=== PATIENT | male | born 1955 | race Caucasian/White ===

== ENCOUNTER → 2023-07-17 17:01 | Outpatient (REF) | payer MEDICARE, OTHER, SELFPAY | LOC: RAD 17:01 | PROVIDERS: ATTENDING PHYSICIAN Internal Medicine | DX: H92.02 Otalgia, left ear (principal); R22.1 Localized swelling, mass and lump, neck | CPT/HCPCS: 76536 ==

== ENCOUNTER → 2023-08-21 07:18 | Outpatient (REF) | payer MEDICARE, OTHER, SELFPAY ==
[2023-08-21 09:49] LABS: Hematocrit 37.8 % (39.0-52.0); Mean Corp Hgb Conc. 34.4 g/dL (33.0-37.0); Mean Corpuscular Hgb 31.6 pg (27.0-31.0); Mean Corpuscular Volume 91.7 fL (80.0-94.0); Mean Platelet Volume 10.6 fL (7.4-10.4); Platelet Count 307 10^3/uL (130-400); Red Blood Cell Count 4.12 10^6/uL (4.70-6.10); Red Cell Dist. Width 13.1 % (11.5-14.5); White Blood Cell Count 7.3 10^3/uL (4.8-10.8)
[2023-08-21 10:31] VITALS: BMI 20.6
[2023-08-21 10:33] LABS: Blood Urea Nitrogen 15 mg/dl (9-20); Calcium 9.3 mg/dl (8.4-10.2); Carbon Dioxide 28 mmol/L (22-30); Chloride 104 mmol/L (98-107); Estimated Creatinine Clearance 72 ml/min; Glucose 96 mg/dl (70-99); Potassium 4.5 mmol/L (3.5-5.1); Sodium 139 mmol/L (135-145); eGFR > 60.00
== END ==
LOC: SDSPAT 07:18
PROVIDERS: ATTENDING PHYSICIAN Otolaryngology; FAMILY PHYSICIAN Internal Medicine
DX: Z01.818 Encounter for other preprocedural examination (principal)
CPT/HCPCS: 36415; 80048; 85027; 93005

== ENCOUNTER 2023-08-27 07:54 | Day surgery (SDC) | payer MEDICARE, OTHER, SELFPAY ==
[2023-08-21 13:29] VITALS: BMI 20.6
[2023-08-27] VITALS (11 sets, daily range): BP systolic 115–150; BP diastolic 62–78; BMI 20.6
[2023-08-27] MEDS: NORMOSOL-R 1000 IV (07:59)
[2023-08-27] MEDS: DILAUDID 0.25 MG IV (09:55)
== END 2023-08-27 11:13 | disposition home or self-care (01) ==
LOC: SDS 07:54
PROVIDERS: ATTENDING PHYSICIAN Otolaryngology; FAMILY PHYSICIAN Internal Medicine
DX: C32.1 Malignant neoplasm of supraglottis (principal); F17.210 Nicotine dependence, cigarettes, uncomplicated
CPT/HCPCS: 31535; 88305; 88342

== ENCOUNTER → 2023-09-06 11:38 | Outpatient (REF) | payer MEDICARE, OTHER, SELFPAY | LOC: RAD 11:38 | PROVIDERS: ATTENDING PHYSICIAN Radiology Radiation Oncology; FAMILY PHYSICIAN Internal Medicine | DX: C01 Malignant neoplasm of base of tongue (principal) | CPT/HCPCS: 70491; Q9967 ==

== ENCOUNTER 2024-04-02 13:55 | Outpatient (RCR) | payer MEDICARE, OTHER, SELFPAY | END 2024-04-02 23:59 | disposition home or self-care (01) | LOC: RPT 13:55 | PROVIDERS: ATTENDING PHYSICIAN Radiology Radiation Oncology; FAMILY PHYSICIAN Internal Medicine | DX: C01 Malignant neoplasm of base of tongue (principal); I89.0 Lymphedema, not elsewhere classified; Z73.6 Limitation of activities due to disability | CPT/HCPCS: 97110; 97112; 97140; 97163; 97530 ==

== ENCOUNTER 2024-04-30 13:52 | Outpatient (RCR) | payer MEDICARE, OTHER, SELFPAY | END 2024-04-30 23:59 | disposition home or self-care (01) | LOC: RPT 13:52 | PROVIDERS: ATTENDING PHYSICIAN Radiology Radiation Oncology; FAMILY PHYSICIAN Internal Medicine | DX: C01 Malignant neoplasm of base of tongue (principal); I89.0 Lymphedema, not elsewhere classified; Z73.6 Limitation of activities due to disability | CPT/HCPCS: 97110; 97112; 97140; 97530 ==

== ENCOUNTER 2024-05-28 13:43 | Outpatient (RCR) | payer MEDICARE, OTHER, SELFPAY | END 2024-05-28 23:59 | disposition home or self-care (01) | LOC: RPT 13:43 | PROVIDERS: ATTENDING PHYSICIAN Radiology Radiation Oncology; FAMILY PHYSICIAN Internal Medicine | DX: C01 Malignant neoplasm of base of tongue (principal); I89.0 Lymphedema, not elsewhere classified; Z73.6 Limitation of activities due to disability; R68.84 Jaw pain; R47.9 Unspecified speech disturbances | CPT/HCPCS: 97110; 97112; 97140 ==

== ENCOUNTER 2024-06-24 13:10 | Outpatient (RCR) | payer MEDICARE, OTHER, SELFPAY | END 2024-06-24 23:59 | disposition home or self-care (01) | LOC: RPT 13:10 | PROVIDERS: ATTENDING PHYSICIAN Radiology Radiation Oncology; FAMILY PHYSICIAN Internal Medicine | DX: C01 Malignant neoplasm of base of tongue (principal); I89.0 Lymphedema, not elsewhere classified; Z73.6 Limitation of activities due to disability; R68.84 Jaw pain; R47.9 Unspecified speech disturbances | CPT/HCPCS: 97110; 97112; 97140; 97530 ==

== ENCOUNTER 2024-07-08 12:53 | Outpatient (RCR) | payer MEDICARE, OTHER, SELFPAY | END 2024-07-09 06:23 | disposition home or self-care (01) | LOC: RPT 12:53 | PROVIDERS: ATTENDING PHYSICIAN Radiology Radiation Oncology; FAMILY PHYSICIAN Internal Medicine | DX: C01 Malignant neoplasm of base of tongue (principal); I89.0 Lymphedema, not elsewhere classified; Z73.6 Limitation of activities due to disability; R68.84 Jaw pain; R47.9 Unspecified speech disturbances | CPT/HCPCS: 97140; 97530 ==